=== PATIENT | male | born 2000 | race African-American/Black ===

== ENCOUNTER → 2024-11-24 | Emergency (ER) | payer BC ==
[~2024-11-24] VITALS: Ht 177.8 cm; Wt 81.8 kg
[~2024-11-24] MED LIST: HYDR-4527 PO
[2024-11-24 03:30] VITALS: TEMP 97.9
[2024-11-24] MEDS: TraMADol HCL 50 MG TABLET PO ONE (06:35)
[2024-11-24] MEDS: METHOCARBAMOL 500 MG TABLET PO ONE (06:35)
[2024-11-24 07:17] VITALS: BP 109/77; PULSE 82; RESP 15; O2SAT 98
== END | disposition home or self-care (01) ==
LOC: EMS 03:32
DX: F41.9 Anxiety disorder, unspecified (principal)
CPT/HCPCS: 99283